=== PATIENT | female | born 1950 | race Caucasian/White ===

== ENCOUNTER 2019-12-13 11:52 | Observation (INO) ==
[2019-12-13 12:24] LABS: Basophils % 0.5 % (0.0-0.8); Eosinophils # 0.1 10*3/uL (0.0-0.87); Eosinophils % 1.4 % (0.00-10.9); Hematocrit 43.4 VOL% (35.7-47.0); Hemoglobin 14.2 GM/DL (12.0-16.0); Immature Granulocytes % 0.2 %; Immature Granulocytes Absolute 0.01 #; Lymphocytes # 1.8 10*3/uL (1.4-4.0); Lymphocytes % 29.1 % (21.3-54.2); Mean Corpuscular HGB Conc 32.7 GM/DL (32-36); Mean Corpuscular Volume 93.7 FL (87-102); Mean Platelet Volume 11.1 FL (9.6-12.0); Monocytes % 7.1 % (1.7-12.7); Neutrophils % 61.7 % (38.7-73.9); Platelet Count 205 T/CUMM (130-400); Red Blood Count 4.63 MC/CUMM (3.8-5.5); Red Cell Distribution Width 13.5 % (9.3-17.3); White Blood Count 6.2 T/CUMM (4-12)
[2019-12-13 12:43] LABS: Albumin 3.6 G/DL (3.4-5.0); Bilirubin,Total 0.4 MG/DL (0.2-1.0); Calcium 9.3 MG/DL (8.5-10.1); Osmolality,Calculated 279.5 MOS/KG (273-304); Total Protein 7.5 G/DL (6.4-8.3)
[2019-12-13 13:47] LABS: Apearance,Urine Slightly Hazy (Clear); Bacteria,Urine Occasional /HPF (Few); Bilirubin,Urine Negative (Negative); Blood, Urine Negative (Negative); Glucose,Urine (UA) Negative (Negative); Ketones,Urine Negative (Negative); Mucus,Urine Occasional /LPF (Occasional); Nitrite,Urine Negative (Negative); Protein,Urine Negative; RBC,Urine 6 /HPF (0-4); Squamous Epithelial Cell,Urine Occasional /HPF (0-10); Urine Color Yellow (Yellow); Urine Specific Gravity 1.019 (1.001-1.035); Urine Urobilinogen < 2.0 EU/DL (0.2-1.0); WBC,Urine 9 /HPF (0-6)
[2019-12-13] MEDS ORDERED: ONDANSETRON 4 MG/2 ML VIAL IV STA (15:09)
[2019-12-13] MEDS ORDERED: HYDROmorphone 2 MG/1 ML VIAL IV STA (15:09)
[2019-12-13] MEDS ORDERED: LEVOFLOXACIN INJ 750 MG in PREMIX 1 EACH IV STA (16:37)
[2019-12-13] MEDS ORDERED: MAGNESIUM SULF RIDER 4 GM in PREMIX 1 EACH IV PRN (16:43)
[2019-12-13] MEDS ORDERED: MORPHINE 4 MG/1 ML VIAL IV PRN (16:43)
[2019-12-13] MEDS ORDERED: MAGNESIUM SULF RIDER 2 GM in PREMIX 1 EACH IV PRN (16:43)
[2019-12-13] MEDS ORDERED: ZALEPLON 5 MG CAPSULE PO PRN (16:43)
[2019-12-13] MEDS ORDERED: POTASSIUM CHLORIDE 20 MEQ/15 ML UDCUP PER TUBE PRN (16:43)
[2019-12-13] MEDS: ENOXAPARIN 80 MG/0.8 ML SYRINGE SUBCUT SCH (17:02)
[2019-12-13] MEDS: SODIUM CHLORIDE 0.45% 1,000 ML IV SCH (18:56)
[2019-12-13] MEDS ORDERED: clonazePAM 0.5 MG TABLET PO PRN (19:52)
[2019-12-13] MEDS: TOPIRAMATE 25 MG TABLET PO SCH (21:27)
[2019-12-13] MEDS: PANTOPRAZOLE 20 MG TABLET PO SCH (21:27)
[2019-12-14] MEDS: SODIUM CHLORIDE 0.45% 1,000 ML IV SCH ×5 (03:10→23:08)
[2019-12-14] MEDS: ENOXAPARIN 80 MG/0.8 ML SYRINGE SUBCUT SCH (04:08)
[2019-12-14 06:34] LABS: Risk Ratio 2.7
[2019-12-14] MEDS ORDERED: ASPIRIN EC 325 MG TABLET PO SCH (09:00)
[2019-12-14] MEDS ORDERED: PANTOPRAZOLE 40 MG TABLET PO SCH (09:00)
[2019-12-14] MEDS: CHOLECALCIFEROL 1,000 UNIT TABLET PO SCH (11:48)
[2019-12-14] MEDS: PANTOPRAZOLE 20 MG TABLET PO SCH ×2 (11:48→20:50)
[2019-12-14] MEDS: ATORVASTATIN 20 MG TABLET PO SCH (11:48)
[2019-12-14] MEDS: CLOPIDOGREL 75 MG TABLET PO SCH (11:48)
[2019-12-14] MEDS: MULTIVITAMIN (CENTRUM) TABLET PO SCH (11:49)
[2019-12-14] MEDS: TOPIRAMATE 25 MG TABLET PO SCH ×2 (11:49→20:50)
[2019-12-14] MEDS ORDERED: ENOXAPARIN 40 MG/0.4 ML SYRINGE SUBCUT SCH (12:00)
[2019-12-15 03:46] LABS: Basophils # 0.1 10*3/uL (0.0-0.2); Basophils % 0.7 % (0.0-0.8); Eosinophils # 0.1 10*3/uL (0.0-0.87); Eosinophils % 2.1 % (0.00-10.9); Hematocrit 40.7 VOL% (35.7-47.0); Immature Granulocytes % 0.1 %; Immature Granulocytes Absolute 0.01 #; Lymphocytes # 2.5 10*3/uL (1.4-4.0); Lymphocytes % 37.2 % (21.3-54.2); Mean Corpuscular HGB Conc 31.9 GM/DL (32-36); Mean Corpuscular Volume 94.9 FL (87-102); Monocytes % 8.2 % (1.7-12.7); Neutrophils % 51.7 % (38.7-73.9); Platelet Count 190 T/CUMM (130-400); Red Blood Count 4.29 MC/CUMM (3.8-5.5); Red Cell Distribution Width 13.8 % (9.3-17.3); White Blood Count 6.8 T/CUMM (4-12)
[2019-12-15 04:01] LABS: Calcium 8.4 MG/DL (8.5-10.1); Osmolality,Calculated 284.8 MOS/KG (273-304)
[2019-12-15] MEDS: SODIUM CHLORIDE 0.45% 1,000 ML IV SCH (04:51)
[2019-12-15] MEDS: CLOPIDOGREL 75 MG TABLET PO SCH (08:54)
[2019-12-15] MEDS: CHOLECALCIFEROL 1,000 UNIT TABLET PO SCH (08:54)
[2019-12-15] MEDS: TOPIRAMATE 25 MG TABLET PO SCH (08:54)
[2019-12-15] MEDS: ATORVASTATIN 20 MG TABLET PO SCH (08:55)
[2019-12-15] MEDS: PANTOPRAZOLE 20 MG TABLET PO SCH (08:55)
[2019-12-15] MEDS: MULTIVITAMIN (CENTRUM) TABLET PO SCH (08:55)
[2019-12-15] MEDS ORDERED: ASPIRIN EC 81 MG TABLET PO SCH (09:00)
[2019-12-15 12:23] VITALS: BP 120/72
== END 2019-12-15 13:30 | disposition home or self-care (01) ==
LOC: N.EDINP 11:52 → N.ED 11:52 → N.TELEN 17:55
PROVIDERS: ADMIT Family Medicine; ATTEND Family Medicine